=== PATIENT | male | born 1950 | race Caucasian/White ===

== ENCOUNTER 2018-06-02 07:17 | Outpatient (CLI) | payer BC ==
--- NOTE | 2018-06-02 11:52 | NM ---
CARDIAC SPECT: CLINICAL HISTORY: 67-year-old male with fatigue, dyslipidemia, hypertension, and diabetes mellitus. Family history of c oronary artery disease. TECHNIQUE: A myocardial perfusion scan was performed using the single isotope one day protocol with technetium-9 9m sestamibi. 11 mCi were injected intravenously for the rest exam followed by 33 mCi for the stress exam. Pharmacologic stress with Adenosine was monitored and interpreted by Dr. Littlejohn. FINDINGS: Homogeneous tracer distribution is seen in the myocardial segments on stress and rest images without fixed or reversible defects. GATED SPECT LVEF: 67%. WALL MOTION EXAM: Normal. IMPRESSION: Normal myocardial perfusion scan. POS: KRISTAL
--- NOTE | 2018-06-03 11:15 | STRESS ---
Acquisition Time: 2018-06-02 09:18:34 Total Exercise Time: 00:04:00 Test Indications: Fatigue Medications: Protocol: ADENOSINE Max HR: 078 BPM 50% of Pred: 155 BPM Max BP: 134/072 mmHG Max Work Load: 1.0 METS RESTING ECG: NORMAL SINUS RHYTHM AT 67 BPM WITH POOR R-WAVE PROGRESSION SYMPTOMS: NONE NORMAL BP RESPONSE ECTOPY: NONE ECG STRESS: NO SIGNIFICANT CHANGES INTERPRETATION: AWAIT NUCLEAR IMAGES FOR DEFINITIVE DIAGNOSIS Confirmed by IDALIA SHERMAN ([id number]), restaurant expeditor HIRAM PINEDO ([id number]) on 06/03/2018 11:15:22 AM Referred By: MD Jerilyn KAMARA Confirmed By:IDALIA SHERMAN
== END 2018-06-02 07:18 | disposition home or self-care (01) ==
LOC: NM 07:17
PROVIDERS: ATTEND Student in an Organized Health Care Education/Training Program
DX: E11.9 Type 2 diabetes mellitus without complications (principal); E78.5 Hyperlipidemia, unspecified; I10 Essential (primary) hypertension; R60.9 Edema, unspecified
CPT/HCPCS: 78452; 93017; A9500; J0153

== ENCOUNTER 2018-11-18 10:34 | Emergency (ER) | payer BC ==
--- NOTE | 2018-11-18 11:32 | RAD ---
RIGHT ANKLE 3 VIEWS: INDICATION: Trauma. FINDINGS: Soft tissue swelling at the ankle. No evidence of acute fracture. Degenerative changes within the t arsals. IMPRESSION: No acute fracture identified. POS: OFF
--- NOTE | 2018-11-18 11:34 | RAD ---
RIGHT FOOT 3 VIEWS: HISTORY: Trauma. Redness and swelling to right foot. FINDINGS: Severe degenerative change is seen in the intertarsal joints. Erosive and hypertrophic changes are s een involving the navicular at the navicular cuneiform joints. Irregularity and degenerative change at the tarsometatarsal joints. DJD at the 1st and 2nd MTP joints. No acute fracture identified. IMPRESSION: Severe degenerative changes in the intertarsal joints and tarsometatarsal joints. Erosive changes ar e seen. 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 Osteomyelitis at the se sits cannot be excluded radiographically. No acute fracture identified. POS: OFF
--- NOTE | 2018-11-18 11:49 | ULT ---
Ultrasound Doppler duplex venous right lower extremity: 09/27/2018 HISTORY: Right lower extremity pain, edema, and erythema. TECHNIQUE: Grayscale, color-flow, and spectral analysis, of major veins of right lower extremity. FINDINGS: There is demonstration of blood flow with normal compressibility, of the right common femoral, profun da femoral, greater saphenous, femoral, popliteal, and posterior tibial, veins. IMPRESSION: Negative. No deep venous thrombosis of right lower extremity.
[2018-11-18 12:31] LABS: #Basophils 0.1 thou/uL (0.0-0.2); #Eosinphils 0.5 thou/uL (0.0-0.7); #Lymphocytes 1.6 thou/uL (1.20-3.40); #Monocytes 1.2 thou/uL (0.11-0.59); #Neutrophils 6.1 thou/uL (1.40-6.50); %Basophils 0.6 % (0.0-1.0); %Eosinophils 5.5 % (0.0-10.0); %Lymphocytes 16.8 % (21.0-51.0); %Monocytes 13.1 % (0.0-10.0); %Neutrophils 64.1 % (42.0-75.0); Hemoglobin 14.5 g/dL (14.0-18.0); Mean Corpuscular HGB CONC 32.5 g/dL (32.0-36.0); Mean Corpuscular Hemoglobin 29.4 pg (27.0-31.0); Mean Corpuscular Volume 90.5 fL (78.0-98.0); Platelet Count 160 thou/uL (130-400); RBC Distribution Width 13.9 % (11.5-14.5); Red Blood Cell (RBC) Count 4.94 mill/uL (4.70-6.10); White Blood Cell (WBC) Count 9.5 thou/uL (4.8-10.8)
[2018-11-18 12:54] LABS: ALT (SGPT) 20 U/L (8-55); AST (SGOT) 18 U/L (5-34); Albumin 4.1 g/dL (3.4-4.8); Alkaline Phosphatase 78 U/L (40-150); Anion Gap 14 mmol/L (10-20); BUN (Urea Nitrogen) 19 mg/dL (8.4-25.7); Calc. Creatinine Clearance 0 mL/min (70-130); Calcium 9.1 mg/dL (7.8-10.44); Carbon Dioxide 23 mmol/L (23-31); Chloride 110 mmol/L (98-107); Estimated GFR-MDRD 65; Globulin 2.7 g/dL (2.4-3.5); Glucose 61 mg/dL (80-115); Protein, Total 6.8 g/dL (5.8-8.1); Sodium 143 mmol/L (136-145)
== END 2018-11-18 12:58 | disposition home or self-care (01) ==
LOC: ERS 10:34
DX: A52.16 Charcot's arthropathy (tabetic) (principal); M25.571 Pain in right ankle and joints of right foot; E11.9 Type 2 diabetes mellitus without complications; I10 Essential (primary) hypertension; Z79.899 Other long term (current) drug therapy; Z79.82 Long term (current) use of aspirin; Z79.4 Long term (current) use of insulin
CPT/HCPCS: 36415; 80053; 85025; 85652; 86140

== ENCOUNTER 2018-12-07 09:15 | Outpatient (CLI) | payer BC ==
--- NOTE | 2018-12-07 15:32 | MRI ---
RIGHT LOWER EXTREMITY MRI WITH AND WITHOUT IV CONTRAST: HISTORY: Contusion right lower leg. Right tibia and fibula swelling, bruising, and redness from calf to foot without evidence for pain or significant injury. FINDINGS: Diffuse nonspecific subcutaneous fat stranding and edema of the lower leg and ankle. There is a 0.9 x 3.1 x 7.4 cm diameter oval T2 slightly hyperintense T1 slightly hyperintense fluid collection adjac ent to the distal medial tibial diaphysis, probably residual hematoma. There is some minimal nonspec ific T2 hyperintensity within the distal extensor hallices and extensor digitorum muscle at the level of the distal tibial metadiaphysis. There is also some minimal abnormal T2 hyperintensity in the di stal flexor hallices muscle, nonspecific, possibly related to nonspecific denervation or mild nonspec ific inflammation. No evidence of associated myonecrosis or significant fasciitis. No abnormal dory ow signal. There is no evidence for significant soft tissue abnormality in the region of the skin ma rker placed over the anterior mid tibial diaphysis. IMPRESSION: Small intermediate to slightly hyperintense T2 and T1 fluid collection adjacent to the distal medial tibial metadiaphysis, probably a small hematoma. Nonspecific subcutaneous edema and fat stranding. Minimal nonspecific T2 hyperintensity within the distal hallices longus muscle as well as the distal extensor hallices longus muscle and distal extensor digitorum muscle, possibly representing some type of nonspecific denervation or myositis without evidence for myonecrosis or deep fasciitis. POS: OFF
== END 2018-12-07 09:16 | disposition home or self-care (01) ==
LOC: BICMRI 09:15
PROVIDERS: ATTEND Family Medicine
DX: S80.11XA Contusion of right lower leg, initial encounter (principal); R22.41 Localized swelling, mass and lump, right lower limb; M14.671 Charcot's joint, right ankle and foot; M62.89 Other specified disorders of muscle
CPT/HCPCS: 82565

== ENCOUNTER 2020-09-05 12:28 | Outpatient (CLI) | payer BC | END 2020-09-05 12:29 | disposition home or self-care (01) | LOC: ULT 12:28 | PROVIDERS: ATTEND Student in an Organized Health Care Education/Training Program | DX: R60.0 Localized edema (principal); I08.1 Rheumatic disorders of both mitral and tricuspid valves | CPT/HCPCS: 93306 ==

== ENCOUNTER 2020-09-27 15:02 | Inpatient (IN) | payer BC ==
[~2020-09-27 15:02] MED LIST: Iopamidol-370 76% 500 ML 1 ML ONE
[2020-09-27 16:20] LABS: Hemoglobin 14.5 g/dL (14.0-18.0); Mean Corpuscular HGB CONC 32.4 g/dL (32.0-36.0); Mean Corpuscular Hemoglobin 28.9 pg (27.0-31.0); Mean Corpuscular Volume 89.3 fL (78.0-98.0); Mean Platelet Volume 8.2 fL (7.4-10.4); Platelet Count 186 thou/uL (130-400); RBC Distribution Width 15.3 % (11.5-14.5); Red Blood Cell (RBC) Count 5.03 mill/uL (4.70-6.10)
[2020-09-27] MEDS ORDERED: Fentanyl 100 MCG/2 ML VIAL ONE ×2 (16:21→18:05)
[2020-09-27] MEDS ORDERED: Ondansetron PF 4 MG/2 ML Vial ONE (16:21)
[2020-09-27 16:39] LABS: Band 44 % (5-11); Eosinophils 4 % (0-10); Lymphocytes 1 % (21-51); MDiff Complete? YES; Monocytes 12 % (0-10); Neutrophil 34 % (42-75); Platelet Morphology Comment Appears Adequate; Polychromasia SLIGHT = 2-3 cells (100X) (0-2/hpf); Reactive Lymphocytes 5 % (0-10); Reflex for Review?? NO
[2020-09-27 16:39] LABS: Actual Bicarbonate (HCO3v) 25 mEq/L (22-28); Analyzer IN Cardio ER; Base Excess 0.8 mEq/L (-2.0 to +3.0); Calcium, Ionized (venous) 1.07 mmol/L (1.16-1.32); Chloride (VBG) 104 mmol/L (98-106); Potassium (VBG) 4.06 mmol/L (3.70-5.30); Sodium 138.6 mmol/L (133-146); pH (venous) 7.42 (7.32-7.43)
[2020-09-27 16:40] LABS: ALT (SGPT) 56 U/L (8-55); AST (SGOT) 39 U/L (5-34); Albumin 3.4 g/dL (3.4-4.8); Alkaline Phosphatase 124 U/L (40-110); Anion Gap 15 mmol/L (10-20); BUN (Urea Nitrogen) 34 mg/dL (8.4-25.7); Calc. Creatinine Clearance 0 mL/min (70-130); Calcium 8.2 mg/dL (7.8-10.44); Carbon Dioxide 26 mmol/L (23-31); Chloride 102 mmol/L (98-107); Globulin 3.5 g/dL (2.4-3.5); Glucose 200 mg/dL (80-115); Potassium 4.6 mmol/L (3.5-5.1); Protein, Total 6.9 g/dL (5.8-8.1); Sodium 138 mmol/L (136-145)
[2020-09-27] MEDS ORDERED: Vancomycin 1 GM/200 ML BAG ONE (17:28)
[2020-09-27] MEDS ORDERED: Cefepime 2 GM VIAL ONE (17:28)
[2020-09-27] MEDS ORDERED: Furosemide 40 MG/4 ML VIAL ONE (17:28)
[2020-09-27 18:01] LABS: Bilirubin Negative (Negative); Blood, Urine Negative (Negative); Clarity Clear (Clear); Glucose, Urine (Dipstick) Greater than 1000 mg/dL (Negative); Ketone, Urine Negative (Negative); Leukocyte Negative Leu/uL (Negative); Nitrite Negative (Negative); Protein, Urine (Dipstick) 20 mg/dL (Neg-Trace); Specific Gravity, Urine 1.029 (1.002-1.036); Urobilinogen Normal mg/dL (Less than 2); pH, Urine 5.5 (5.0-9.0)
[2020-09-27] MEDS ORDERED: Fentanyl 100 MCG/2 ML VIAL SLOW IVP PRN (19:57)
[2020-09-27] MEDS ORDERED: Sodium Chloride 0.9% 1,000 ML IV SCH (20:00)
[2020-09-27] MEDS ORDERED: Ondansetron ODT 4 MG TAB SL PRN (20:00)
[2020-09-27] MEDS ORDERED: Ondansetron PF 4 MG/2 ML Vial IVP PRN ×2 (20:00→20:23)
[2020-09-27] MEDS ORDERED: Acetaminophen 325 MG TAB PO PRN (20:00)
[2020-09-27] MEDS ORDERED: Dextrose 50% Abboject 50 ML SYRINGE SLOW IVP PRN (20:23)
[2020-09-27] MEDS ORDERED: Dextrose 5% in Water 1,000 ML IV PRN (20:23)
[2020-09-27] MEDS ORDERED: Calcium Carbonate 500 MG ChewTAB PO PRN (20:23)
[2020-09-27] MEDS ORDERED: Ondansetron ODT 4 MG TAB PO PRN (20:23)
[2020-09-27] MEDS ORDERED: Morphine 4 MG/ML VIAL SLOW IVP PRN (20:30)
[2020-09-27 20:45] LABS: Troponin I 0.013 ng/mL (< 0.028)
[2020-09-27 21:11] LABS: Hep C IgG Ab Non-Reactive (NonReactive); Hep C Index 0.09 S/CO (0-0.79)
[2020-09-27 21:55] LABS: Actual Bicarbonate (HCO3a) 26.2 mEq/L (22-28); Analyzer IN Cardio OR; Base Excess (BEa) -3.3 mEq/L (-2.0 to +3.0); Calcium, Ionized (arterial) 1.16 mmol/L (1.12-1.30); Carboxyhemoglobin (COHb) 0.9 gm% (0.0-3.0); Hemoglobin (Hb) 15.1 g/dL (14.0-18.0); O2 Tension (PaO2), arterial 113.6 mmHg (> 80.0)
[2020-09-27 21:57] LABS: ALV-art Gradient 515.025 mmHg (0-20); CO2 Tension 67.5 mmHg (35.0-45.0); Puncture Site RBA; pH, Arterial 7.21 (7.35-7.45)
[2020-09-27] MEDS ORDERED: Lorazepam 2 MG/ML VIAL ONE (22:10)
[2020-09-27] MEDS ORDERED: Lorazepam 2 MG/ML VIAL SLOW IVP SCH (22:45)
[2020-09-27] MEDS: Tamsulosin HCl 0.4 MG CAP PO SCH (23:12)
[2020-09-27] MEDS ORDERED: Lactated Ringer's 1,000 ML IV SCH (23:45)
[2020-09-28] MEDS: Acetaminophen 325 MG TAB PO PRN ×4 (00:37→23:44)
[2020-09-28] MEDS: Tamsulosin HCl 0.4 MG CAP PO SCH ×2 (00:38→23:44)
[2020-09-28 01:26] LABS: SARS-CoV-2 PCR by NAA Not Detected (NotDetected)
[2020-09-28] MEDS ORDERED: Lactated Ringer's 500 ML IV SCH ×3 (03:15→12:15)
[2020-09-28] MEDS: Cefepime 2 GM in Sodium Chloride 0.9% 100 ML IVPB SCH ×3 (03:15→17:36)
[2020-09-28] MEDS: Lactated Ringer's 1,000 ML IV SCH ×6 (03:47→23:15)
[2020-09-28 04:17] LABS: Band 27 % (5-11); Hemoglobin 12.8 g/dL (14.0-18.0); Lymphocytes 1 % (21-51); MDiff Complete? YES; Mean Corpuscular HGB CONC 33.3 g/dL (32.0-36.0); Mean Corpuscular Hemoglobin 29.7 pg (27.0-31.0); Mean Corpuscular Volume 89.3 fL (78.0-98.0); Mean Platelet Volume 8.6 fL (7.4-10.4); Monocytes 7 % (0-10); Neutrophil 64 % (42-75); Platelet Count 161 thou/uL (130-400); RBC Distribution Width 15.1 % (11.5-14.5); Red Blood Cell (RBC) Count 4.32 mill/uL (4.70-6.10)
[2020-09-28 04:21] LABS: ALT (SGPT) 40 U/L (8-55); AST (SGOT) 26 U/L (5-34); Albumin 2.8 g/dL (3.4-4.8); Alkaline Phosphatase 99 U/L (40-110); Anion Gap 19 mmol/L (10-20); BUN (Urea Nitrogen) 31 mg/dL (8.4-25.7); Bilirubin, Total 0.7 mg/dL (0.2-1.2); Calc. Creatinine Clearance 67 mL/min (70-130); Calcium 7.9 mg/dL (7.8-10.44); Carbon Dioxide 20 mmol/L (23-31); Chloride 103 mmol/L (98-107); Globulin 3.5 g/dL (2.4-3.5); Glucose 207 mg/dL (80-115); Potassium 3.8 mmol/L (3.5-5.1); Protein, Total 6.3 g/dL (5.8-8.1); Sodium 138 mmol/L (136-145)
[2020-09-28] MEDS ORDERED: Vancomycin 1.5 GRAM/300 ML BAG 1.5 GM in Premix Bag 1 BAG IVPB SCH ×2 (06:00→09:00)
[2020-09-28] MEDS: Levothyroxine Sodium 25 MCG TAB PO SCH (06:11)
[2020-09-28] MEDS: Vancomycin 1 GM in Premix Bag 1 BAG IVPB SCH ×2 (06:11→18:11)
[2020-09-28] MEDS: Levothyroxine Sodium 112 MCG TAB PO SCH (06:11)
[2020-09-28] MEDS ORDERED: Furosemide 20 MG/2 ML VIAL SLOW IVP SCH (09:00)
[2020-09-28] MEDS ORDERED: Empagliflozin 25 MG TAB PO SCH (09:00)
[2020-09-28] MEDS ORDERED: Carvedilol 25 MG TAB PO SCH (09:00)
[2020-09-28] MEDS ORDERED: Losartan 25 MG TAB PO SCH (09:00)
[2020-09-28] MEDS: Aspirin 81 mg Enteric Coated Tablet PO SCH (09:09)
[2020-09-28] MEDS: HumaLOG 300 UNITS/3 ML VIAL SC SCH ×3 (09:10→17:22)
[2020-09-28] MEDS: Enoxaparin Sodium 40 MG/0.4 ML SYRINGE SC SCH (09:10)
[2020-09-28] MEDS ORDERED: Morphine 2 MG/ML VIAL SLOW IVP SCH (09:45)
[2020-09-28] MEDS: Lantus 1000 UNITS/10 ML VIAL SC SCH (10:02)
[2020-09-28] MEDS: Morphine 2 MG/ML VIAL SLOW IVP PRN ×2 (13:57→18:11)
[2020-09-28] MEDS ORDERED: Iothalamate Meglumine 60% 50 ML VIAL FS ONE (20:27)
[2020-09-28] MEDS ORDERED: SUGAMMADEX SODIUM 500 MG/5 ML VIAL ONE (20:52)
[2020-09-28] MEDS ORDERED: Fentanyl 100 MCG/2 ML VIAL ONE (20:52)
[2020-09-28] MEDS ORDERED: Albuterol Sulfate HFA (OR ONLY) ONE (20:58)
[2020-09-28] MEDS ORDERED: Dexamethasone 20 MG/5 ML VIAL ONE (20:58)
[2020-09-28] MEDS ORDERED: PROPOFOL 200 MG/20 ML VIAL ONE (20:58)
[2020-09-28] MEDS ORDERED: Ondansetron PF 4 MG/2 ML Vial ONE (20:58)
[2020-09-28] MEDS ORDERED: PHENYLEPHRINE-NS 100 MCG/ML 10 ML SYRINGE ONE (20:58)
[2020-09-28] MEDS ORDERED: Lidocaine 1% PF 5 ML VIAL ONE (20:58)
[2020-09-28] MEDS ORDERED: Morphine Sulfate 2 MG/ML SYRINGE SLOW IVP PRN (22:04)
[2020-09-28] MEDS ORDERED: PACU-Morphine 4MG/ML VIAL SLOW IVP PRN (22:04)
[2020-09-28] MEDS ORDERED: Promethazine HCl 25 MG/ML VIAL IM PRN (22:04)
[2020-09-28] MEDS ORDERED: Ondansetron HCl/PF 4 MG/2 ML Vial IVP PRN (22:04)
[2020-09-28] MEDS ORDERED: HYDROmorphone 2 MG/ML VIAL SLOW IVP PRN (22:04)
[2020-09-28] MEDS ORDERED: Promethazine HCl 25 MG/ML VIAL SLOW IVP PRN (22:04)
[2020-09-28] MEDS: Simvastatin 40 MG TAB PO SCH (23:44)
[2020-09-29] MEDS ORDERED: Lactated Ringer's 500 ML IV SCH ×2 (00:30→11:00)
[2020-09-29] MEDS: Cefepime 2 GM in Sodium Chloride 0.9% 100 ML IVPB SCH ×3 (02:52→17:25)
[2020-09-29] MEDS: Vancomycin 1 GM in Premix Bag 1 BAG IVPB SCH ×2 (06:26→18:43)
[2020-09-29] MEDS: Levothyroxine Sodium 112 MCG TAB PO SCH (06:26)
[2020-09-29] MEDS: Levothyroxine Sodium 25 MCG TAB PO SCH (06:26)
[2020-09-29 07:46] LABS: #Lymphocytes 0.5 thou/uL (1.20-3.40); #Monocytes 0.4 thou/uL (0.11-0.59); #Neutrophils 6.6 thou/uL (1.40-6.50); %Eosinophils 0.1 % (0.0-10.0); %Lymphocytes 6.2 % (21.0-51.0); %Monocytes 4.9 % (0.0-10.0); %Neutrophils 88.8 % (42.0-75.0); Hemoglobin 12.8 g/dL (14.0-18.0); Mean Corpuscular HGB CONC 30.5 g/dL (32.0-36.0); Mean Corpuscular Hemoglobin 27.9 pg (27.0-31.0); Mean Corpuscular Volume 91.3 fL (78.0-98.0); Mean Platelet Volume 8.2 fL (7.4-10.4); Platelet Count 161 thou/uL (130-400); RBC Distribution Width 15.6 % (11.5-14.5); Red Blood Cell (RBC) Count 4.58 mill/uL (4.70-6.10); White Blood Cell (WBC) Count 7.4 thou/uL (4.8-10.8)
[2020-09-29 07:56] LABS: ALT (SGPT) 39 U/L (8-55); AST (SGOT) 29 U/L (5-34); Albumin 2.7 g/dL (3.4-4.8); Alkaline Phosphatase 170 U/L (40-110); Anion Gap 18 mmol/L (10-20); BUN (Urea Nitrogen) 34 mg/dL (8.4-25.7); Bilirubin, Total 0.6 mg/dL (0.2-1.2); Calc. Creatinine Clearance 73 mL/min (70-130); Calcium 7.6 mg/dL (7.8-10.44); Carbon Dioxide 23 mmol/L (23-31); Chloride 104 mmol/L (98-107); Glucose 216 mg/dL (80-115); Potassium 4.5 mmol/L (3.5-5.1); Protein, Total 5.7 g/dL (5.8-8.1); Sodium 140 mmol/L (136-145)
[2020-09-29] MEDS: Enoxaparin Sodium 40 MG/0.4 ML SYRINGE SC SCH (08:03)
[2020-09-29] MEDS: Aspirin 81 mg Enteric Coated Tablet PO SCH (08:08)
[2020-09-29] MEDS: Pregabalin 75 MG CAP PO SCH ×2 (08:09→21:19)
[2020-09-29] MEDS: HumaLOG 300 UNITS/3 ML VIAL SC SCH ×3 (08:10→17:27)
[2020-09-29] MEDS: Lantus 1000 UNITS/10 ML VIAL SC SCH (08:10)
[2020-09-29] MEDS: Lactated Ringer's 1,000 ML IV SCH ×2 (08:47→11:02)
[2020-09-29] MEDS: HumaLOG 300 UNITS/3 ML VIAL SC PRN ×3 (11:08→22:42)
[2020-09-29 20:11] LABS: Bacteria/HPF None Seen HPF (None Seen); Bilirubin Negative (Negative); Blood, Urine 3+ (Negative); Clarity Turbid (Clear); Glucose, Urine (Dipstick) Greater than 1000 mg/dL (Negative); Ketone, Urine 10 mg/dL (Negative); Leukocyte 500 Leu/uL (Negative); Nitrite Negative (Negative); Protein, Urine (Dipstick) 100 mg/dL (Neg-Trace); RBC/HPF Greater than 50 HPF (0-3); Specific Gravity, Urine 1.027 (1.002-1.036); Squamous Epithelial None Seen HPF (0-3); Urobilinogen Normal mg/dL (Less than 2); WBC/HPF Greater than 50 HPF (0-3); pH, Urine 5.5 (5.0-9.0)
[2020-09-29 20:14] LABS: Urine Culture Reflex Yes Yes
[2020-09-29] MEDS: Tamsulosin HCl 0.4 MG CAP PO SCH (21:18)
[2020-09-29] MEDS: Simvastatin 40 MG TAB PO SCH (21:41)
[2020-09-30] MEDS: Cefepime 2 GM in Sodium Chloride 0.9% 100 ML IVPB SCH ×3 (03:17→18:13)
[2020-09-30] MEDS: Vancomycin 1 GM in Premix Bag 1 BAG IVPB SCH (05:10)
[2020-09-30] MEDS: Levothyroxine Sodium 25 MCG TAB PO SCH (05:11)
[2020-09-30] MEDS: Levothyroxine Sodium 112 MCG TAB PO SCH (05:11)
[2020-09-30] MEDS: HumaLOG 300 UNITS/3 ML VIAL SC PRN ×3 (05:15→18:17)
[2020-09-30 05:49] LABS: #Lymphocytes 0.5 thou/uL (1.20-3.40); #Monocytes 1.1 thou/uL (0.11-0.59); #Neutrophils 9.6 thou/uL (1.40-6.50); %Basophils 0.1 % (0.0-1.0); %Eosinophils 0.4 % (0.0-10.0); %Lymphocytes 4.3 % (21.0-51.0); %Monocytes 9.7 % (0.0-10.0); %Neutrophils 85.5 % (42.0-75.0); Hemoglobin 13.8 g/dL (14.0-18.0); Mean Corpuscular HGB CONC 31.8 g/dL (32.0-36.0); Mean Corpuscular Hemoglobin 28.8 pg (27.0-31.0); Mean Corpuscular Volume 90.8 fL (78.0-98.0); Mean Platelet Volume 8.4 fL (7.4-10.4); Platelet Count 196 thou/uL (130-400); RBC Distribution Width 15.4 % (11.5-14.5); Red Blood Cell (RBC) Count 4.77 mill/uL (4.70-6.10); White Blood Cell (WBC) Count 11.2 thou/uL (4.8-10.8)
[2020-09-30 06:09] LABS: ALT (SGPT) 50 U/L (8-55); AST (SGOT) 46 U/L (5-34); Albumin 2.7 g/dL (3.4-4.8); Alkaline Phosphatase 153 U/L (40-110); Anion Gap 13 mmol/L (10-20); BUN (Urea Nitrogen) 37 mg/dL (8.4-25.7); Bilirubin, Total 0.5 mg/dL (0.2-1.2); Calc. Creatinine Clearance 87 mL/min (70-130); Calcium 8.1 mg/dL (7.8-10.44); Carbon Dioxide 26 mmol/L (23-31); Chloride 104 mmol/L (98-107); Globulin 3.7 g/dL (2.4-3.5); Glucose 227 mg/dL (80-115); Potassium 4.4 mmol/L (3.5-5.1); Protein, Total 6.4 g/dL (5.8-8.1); Sodium 139 mmol/L (136-145)
[2020-09-30 06:13] VITALS: BMI 31.4
[2020-09-30] MEDS ORDERED: Promethazine HCl 12.5 MG in Sodium Chloride 0.9% 50 ML IVPB PRN (07:25)
[2020-09-30] MEDS: Aspirin 81 mg Enteric Coated Tablet PO SCH (08:25)
[2020-09-30] MEDS: Pregabalin 75 MG CAP PO SCH ×2 (08:25→21:25)
[2020-09-30] MEDS: Lantus 1000 UNITS/10 ML VIAL SC SCH (08:26)
[2020-09-30] MEDS: HumaLOG 300 UNITS/3 ML VIAL SC SCH ×3 (08:26→18:14)
[2020-09-30] MEDS: Enoxaparin Sodium 40 MG/0.4 ML SYRINGE SC SCH (08:27)
[2020-09-30] MEDS ORDERED: Lantus 1000 UNITS/10 ML VIAL SC SCH ×2 (09:00→10:00)
[2020-09-30] MEDS: Empagliflozin 25 MG TAB PO SCH (10:11)
[2020-09-30 17:27] LABS: Vancomycin, Trough 23.1 ug/mL
[2020-09-30] MEDS ORDERED: Vancomycin HCl 750 MG in Sodium Chloride 0.9% 250 ML 250 ML IVPB SCH ×2 (18:00→23:59)
[2020-09-30] MEDS: metFORMIN 500 MG TAB PO SCH (18:14)
[2020-09-30] MEDS: Acetaminophen 325 MG TAB PO PRN (21:25)
[2020-09-30] MEDS: Tamsulosin HCl 0.4 MG CAP PO SCH (21:25)
[2020-09-30] MEDS: Simvastatin 40 MG TAB PO SCH (21:25)
[2020-09-30] MEDS ORDERED: Melatonin 3 MG TAB PO SCH (22:15)
[2020-10-01] MEDS: Cefepime 2 GM in Sodium Chloride 0.9% 100 ML IVPB SCH (03:09)
[2020-10-01 05:34] LABS: Hemoglobin 14.4 g/dL (14.0-18.0); Mean Corpuscular HGB CONC 32.1 g/dL (32.0-36.0); Mean Corpuscular Hemoglobin 28.4 pg (27.0-31.0); Mean Corpuscular Volume 88.5 fL (78.0-98.0); Mean Platelet Volume 7.9 fL (7.4-10.4); Platelet Count 210 thou/uL (130-400); RBC Distribution Width 15.4 % (11.5-14.5); Red Blood Cell (RBC) Count 5.09 mill/uL (4.70-6.10); White Blood Cell (WBC) Count 13.2 thou/uL (4.8-10.8)
[2020-10-01 05:46] LABS: ALT (SGPT) 41 U/L (8-55); AST (SGOT) 31 U/L (5-34); Albumin 2.5 g/dL (3.4-4.8); Alkaline Phosphatase 124 U/L (40-110); Anion Gap 13 mmol/L (10-20); BUN (Urea Nitrogen) 30 mg/dL (8.4-25.7); Bilirubin, Total 0.6 mg/dL (0.2-1.2); Calc. Creatinine Clearance 96 mL/min (70-130); Calcium 7.9 mg/dL (7.8-10.44); Carbon Dioxide 21 mmol/L (23-31); Chloride 106 mmol/L (98-107); Globulin 3.6 g/dL (2.4-3.5); Glucose 195 mg/dL (80-115); Potassium 4.2 mmol/L (3.5-5.1); Protein, Total 6.1 g/dL (5.8-8.1); Sodium 136 mmol/L (136-145)
[2020-10-01] MEDS: Levothyroxine Sodium 112 MCG TAB PO SCH (05:54)
[2020-10-01] MEDS: HumaLOG 300 UNITS/3 ML VIAL SC PRN (05:54)
[2020-10-01] MEDS: Levothyroxine Sodium 25 MCG TAB PO SCH (05:54)
[2020-10-01 06:34] LABS: Band 21 % (5-11); Lymphocytes 2 % (21-51); MDiff Complete? YES; Monocytes 8 % (0-10); Neutrophil 69 % (42-75)
[2020-10-01] MEDS: HumaLOG 300 UNITS/3 ML VIAL SC SCH (08:09)
[2020-10-01] MEDS: Enoxaparin Sodium 40 MG/0.4 ML SYRINGE SC SCH (08:09)
[2020-10-01] MEDS: Empagliflozin 25 MG TAB PO SCH (08:10)
[2020-10-01] MEDS: Pregabalin 75 MG CAP PO SCH (08:10)
[2020-10-01] MEDS: metFORMIN 500 MG TAB PO SCH (08:10)
[2020-10-01] MEDS: Aspirin 81 mg Enteric Coated Tablet PO SCH (08:11)
[2020-10-01] MEDS ORDERED: Lantus 1000 UNITS/10 ML VIAL SC SCH (09:00)
[2020-10-01 11:20] VITALS: BP 108/73; TEMP 98.2
[2020-10-03 16:15] LABS: Fungus Stain Final report (.)
[2020-10-28 13:40] LABS: Fungus Culture Final report (.)
== END 2020-10-01 12:20 | disposition home or self-care (01) | DRG 853 ==
LOC: ERS 15:02 → 2NO 17:52 → IMCU/EMU 22:19 → SURG B 09-29 12:36
PROVIDERS: ADMIT Family Medicine; ATTEND Family Medicine
PROC: 0T778DZ Dilation of Left Ureter with Intraluminal Device, Via Natural or Artificial Opening Endoscopic (ICD-10-PCS; principal; 2020-09-28)
PROC: BT1FZZZ Fluoroscopy of Left Kidney, Ureter and Bladder (ICD-10-PCS; 2020-09-28)
PROC: 5A09357 Assistance with Respiratory Ventilation, Less than 24 Consecutive Hours, Continuous Positive Airway Pressure (ICD-10-PCS; 2020-09-28)
DX: A41.9 Sepsis, unspecified organism (principal); J96.01 Acute respiratory failure with hypoxia; I50.33 Acute on chronic diastolic (congestive) heart failure; Q62.11 Congenital occlusion of ureteropelvic junction; N17.9 Acute kidney failure, unspecified; L97.419 Non-pressure chronic ulcer of right heel and midfoot with unspecified severity; N13.6 Pyonephrosis; N99.820 Postprocedural hemorrhage of a genitourinary system organ or structure following a genitourinary system procedure; Z20.822 Contact with and (suspected) exposure to COVID-19; I11.0 Hypertensive heart disease with heart failure; E78.5 Hyperlipidemia, unspecified; E03.9 Hypothyroidism, unspecified; E11.42 Type 2 diabetes mellitus with diabetic polyneuropathy; E78.2 Mixed hyperlipidemia; E11.621 Type 2 diabetes mellitus with foot ulcer; Y83.8 Other surgical procedures as the cause of abnormal reaction of the patient, or of later complication, without mention of misadventure at the time of the procedure; Z79.899 Other long term (current) drug therapy; Z79.890 Hormone replacement therapy; Z79.82 Long term (current) use of aspirin; Z79.4 Long term (current) use of insulin; Z82.49 Family history of ischemic heart disease and other diseases of the circulatory system; Z87.442 Personal history of urinary calculi
CPT/HCPCS: 36415; 36416; 36600; 71046; 71275; 74177; 80053; 80202; 81001; 81003; 82805; 83605; 83690; 83880; 84145; 84443; 84484; 85025; 85379; 86140; 86803; 87040; 87070; 87077; 87086; 87102; 87186; 87205; 87206; 87635; 93005; 93010; 94660; 96365; 96367; 96375; 96376; J0692; J1100; J1650; J1815; J1940; J2060; J2270; J2405; J2704; J3010; J3370; J3490; J7050; J7620; Q0162; Q9961; Q9967; U0003; U0005